=== PATIENT | female | born 1960 | race Caucasian/White ===

== ENCOUNTER 2018-10-16 13:30 | Emergency (ER) | payer OTHER ==
[~2018-10-16] VITALS: Ht 160 cm; Wt 113.4 kg
[2018-10-16 13:36] VITALS: BP 125/85
--- NOTE | 2018-10-16 13:40 | NUR ---
PT STATES SHE WAS TOLD BY HER PCP TO COME INTO [facility] FOR "FLUID RETENTION". PT STATES SHE HAS SHARP PAIN 9/10 TO BOTH LEGS WITH +1 PITTING EDEMA TO BLE. PT HAS REDDENED BLISTER LIKE BUMPS TO BACK OF BILAT LEGS AND R SIDE BUTTOCKS AREA. PER PT, HER DR TOLD HER "IT WAS A STAPH INFECTION". PT HAS BTK AMPUTATION TO LLE. AAOX4, PT UNABLE TO WALK. LUNGS CLEAR BL, PT DENIES SOB, CP. HR EVEN AND REGULAR; VSS; PATIENT POSITIONED FOR COMFORT; HOB ELEVATED; BEDRAILS UP X1; BED DOWN. ER MD MADE AWARE OF PT STATUS.
--- NOTE | 2018-10-16 14:00 | NUR ---
ERMD AT BEDSIDE
[2018-10-16] MEDS ORDERED: HYDROmorphone PFS 2 MG/ML SYR IVP ONE (14:10)
[2018-10-16 14:23] LABS: EOSINOPHILS # (AUTO) 0.1 K/uL (0-0.4); EOSINOPHILS % (AUTO) 4.1 % (0.0-4.0); HEMATOCRIT 36.7 % (36-48); HEMOGLOBIN 12.1 g/dL (12.0-16.0); LYMPHOCYTES # (AUTO) 0.7 K/uL (2.5-16.5); LYMPHOCYTES % (AUTO) 22.7 % (20.5-51.1); MEAN CORPUSCULAR HEMOGLOBIN 30 pg (27-31); MEAN CORPUSCULAR HGB CONC 33 g/dL (33-37); MEAN CORPUSCULAR VOLUME 90.1 fL (80-94); MONOCYTES # (AUTO) 0.3 K/uL (0.8-1.0); MONOCYTES % (AUTO) 9.5 % (1.7-9.3); NEUTROPHILS # (AUTO) 1.9 K/uL (1.8-7.7); NEUTROPHILS % (AUTO) 62.7 % (42.2-75.2); PLATELET COUNT (AUTO) 107 K/uL (140-450); RED BLOOD CELL COUNT(AUTO) 4.07 MIL/uL (4.20-5.40); RED CELL DISTRIBUTION WIDTH 17.4 % (11.6-13.7)
[2018-10-16 14:41] LABS: ANION GAP 7.3 (8-16); ASPARTATE AMINOTRANSFERASE 19 U/L (15-37); CARBON DIOXIDE 33.2 mmol/L (21-32); CHLORIDE 101 mmol/L (98-107); CREATININE 1.4 mg/dL (0.6-1.3); GFR ARICAN-AMERICAN 49 mL/min (>90); GLUCOSE 157 mg/dL (74-106); POTASSIUM 3.5 mmol/L (3.5-5.1); SODIUM SERUM 138 mmol/L (136-145); TOTAL BILIRUBIN 1.2 mg/dL (0.0-1.0); UREA NITROGEN, BLOOD 13 mg/dL (7-18)
[2018-10-16 14:51] LABS: ACETAMINOPHEN < 0.5 ug/ml (10-30); SALICYLATE < 2.8 mg/dL (2.8-20.0)
--- NOTE | 2018-10-16 15:30 | NUR ---
# 14 FR Song catheter with 10 ml utilizing sterile technique. Immediate return of 1000 ml DARK YELLOW, ORDOROUS urine noted. Bedside drainage bag placed below level of bladder. Urine sample collected and sent to lab. Pt tolerated procedure WELL.
[2018-10-16 15:49] LABS: APPEARANCE,URINE SL CLOUDY (CLEAR); BILIRUBIN,URINE NEGATIVE (NEGATIVE); BLOOD, URINE TRACE-L (NEGATIVE); COLOR,URINE YELLOW (YELLOW); LEUKOCYTE ESTERASE ,URINE 3+ (NEGATIVE); NITRITE, URINE POSITIVE (NEGATIVE); UGLUCOSE NEGATIVE (NEGATIVE)
[2018-10-16 15:54] LABS: BARBITURATE, URINE NEG. ng/ml (NEG <=200); BENZODIAZEPINE, URINE NEG. ng/mL (NEG <=200); CANNABINOID, URINE NEG. ng/mL (NEG <=50); COCAINE, URINE NEG. ng/mL (NEG <=300); OPIATE, URINE NEG. ng/mL (NEG <=2000); PHENCYCLIDINE SCREEN,URINE NEG. ng/mL (NEG <=25)
--- NOTE | 2018-10-16 16:14 | NUR ---
ERMD AT BEDSIDE
[2018-10-16 16:36] LABS: RBC,URINE 0-5 /HPF (0-5); WBC,URINE 20-60 /HPF (0-5)
[2018-10-16] MEDS ORDERED: cefTRIAXone 1,000 MG VIAL ONE (16:49)
[2018-10-16] MEDS ORDERED: oxyCODONE/APAP 5/325 MG 1 TAB TAB PO ONE (18:45)
[2018-10-16 19:00] VITALS: BP 122/70
--- NOTE | 2018-10-16 19:00 | NUR ---
Patient discharged with v/s stable. Written and verbal after care instructions given and explained. Patient alert, oriented and verbalized understanding of instructions. Ambulance Transport with to home. All questions addressed prior to discharge. ID band removed. Patient advised to follow up with PMD. Rx of LASIX, PERCOCET, KEFLEX given. Patient educated on indication of medication including possible reaction and side effects. Opportunity to ask questions provided and answered.
== END 2018-10-16 19:00 | disposition home or self-care (01) ==
LOC: MED 13:30
DX: L03.115 Cellulitis of right lower limb (principal); I50.9 Heart failure, unspecified; Z89.512 Acquired absence of left leg below knee; Z98.890 Other specified postprocedural states; I25.2 Old myocardial infarction
CPT/HCPCS: 36415; 71045; 80053; 80305; 81001; 81025; 82550; 83880; 84484; 85025; 87086; 87186; 93005; 96365; 96375; 99284; G0480; G0482; J0696; J1170; Q0092

== ENCOUNTER 2018-10-24 14:28 | Inpatient (IN) | payer OTHER ==
[~2018-10-24] VITALS: Ht 160 cm; Wt 151.0 kg
[2018-10-24 14:41] VITALS: BP 126/75
--- NOTE | 2018-10-24 15:00 | NUR ---
58 YO M WITH CHIEF C/O RETAINING FLUID. PT REPORTS DRAINING GOLDEN CATHETER AT 09:00 THIS MORNING AND UP TO NOW THERE IS ONLY 200ML OF CLEAR YELLOW URINE. DENIES ANY SOB AT THIS TIME. A/O X4. PT CONNECTED TO RAMEZ COLINDRES UP X1 FOR SAFETY.
--- NOTE | 2018-10-24 15:00 | NUR ---
URINE COLLECTED AND SENT TO LAB
[2018-10-24] MEDS ORDERED: BUME1TAB92 PO ×2 (15:21→15:28)
[2018-10-24 15:24] LABS: BASOPHILS % (AUTO) 0.1 % (0.0-2.0); EOSINOPHILS # (AUTO) 0.1 K/uL (0-0.4); EOSINOPHILS % (AUTO) 4.1 % (0.0-4.0); HEMATOCRIT 36.6 % (36-48); LYMPHOCYTES # (AUTO) 0.5 K/uL (2.5-16.5); MEAN CORPUSCULAR HEMOGLOBIN 30 pg (27-31); MEAN CORPUSCULAR HGB CONC 33 g/dL (33-37); MEAN CORPUSCULAR VOLUME 89.9 fL (80-94); MONOCYTES # (AUTO) 0.3 K/uL (0.8-1.0); MONOCYTES % (AUTO) 9.3 % (1.7-9.3); NEUTROPHILS # (AUTO) 2.3 K/uL (1.8-7.7); NEUTROPHILS % (AUTO) 71.5 % (42.2-75.2); PLATELET COUNT (AUTO) 105 K/uL (140-450); RED BLOOD CELL COUNT(AUTO) 4.07 MIL/uL (4.20-5.40); RED CELL DISTRIBUTION WIDTH 16.9 % (11.6-13.7); WHITE BLOOD COUNT (AUTO) 3.3 K/uL (4.8-10.8)
[2018-10-24] MEDS ORDERED: FURO-570 PO (15:28)
[2018-10-24] MEDS ORDERED: HYDR2TAB6 PO (15:28)
[2018-10-24] MEDS ORDERED: DOL10 PO (15:28)
[2018-10-24] MEDS ORDERED: SPIR50TA PO (15:28)
[2018-10-24] MEDS ORDERED: GABA300C PO (15:28)
[2018-10-24 15:42] LABS: APPEARANCE,URINE HAZY (CLEAR); BILIRUBIN,URINE NEGATIVE (NEGATIVE); BLOOD, URINE 3+ (NEGATIVE); COLOR,URINE YELLOW (YELLOW); LEUKOCYTE ESTERASE ,URINE 1+ (NEGATIVE); NITRITE, URINE POSITIVE (NEGATIVE); UGLUCOSE NEGATIVE (NEGATIVE)
[2018-10-24 15:55] LABS: COARSE GRANULAR CASTS,URINE 0-10 /LPF (None Seen)
[2018-10-24 15:55] LABS: ALBUMIN 2.8 g/dL (3.4-5.0); CARBON DIOXIDE 33.9 mmol/L (21-32); CREATININE 1.7 mg/dL (0.6-1.3); POTASSIUM 3.9 mmol/L (3.5-5.1); TOTAL BILIRUBIN 1.2 mg/dL (0.0-1.0)
--- NOTE | 2018-10-24 16:00 | NUR ---
PT REFUSED INSERTION OF NEW GOLDEN CATHETER
[2018-10-24] MEDS ORDERED: BUMETANIDE 1 MG/4 ML VIAL IV ONE (16:30)
--- NOTE | 2018-10-24 16:52 | NUR ---
SPOKE WITH ELECTRICAL SYSTEMS DESIGNER AND CALLED FOR BED ASSIGNMENT. WILL CALL BACK.
--- NOTE | 2018-10-24 17:35 | NUR ---
RECEIVED BEDSIDE REPORT FROM ER NURSE. PATIENT IS AWAKE, ALERT AND ORIENTEDX4. NO SIGNS OF DISTRESS ON RA. SKIN HAS WOUNDS ON BUTTOCKS, PHOTOS TAKEN. LT BKA. IV ON R HAND 20G SL. CLEAN, DRY AND INTACT. PATIENT IS CONTINENT. FALL RISK PROTOCOL IN PLACE D/T WEAKNESS AND OBESITY. VITALS ARE B/P 111/81 HR 75 TEMP 98.6 RR 18 98% RA. MRSA NARES DONE. BED IN LOW POSITION. CALL LIGHT WITHIN REACH. PATIENT ABLE TO MAKE NEEDS KNOWN.
--- NOTE | 2018-10-24 17:55 | NUR ---
Pt admitted to med surg Rm 106b, report given to Conchita Laureano. Transfer of care at this time.
[2018-10-24] MEDS ORDERED: HYDROcodone/APAP 5/325 MG 1 TAB TAB PO PRN ×3 (18:15→22:00)
[2018-10-24] MEDS ORDERED: HYDROcodone/APAP 10/325 MG 1 TAB TAB PO PRN (18:15)
--- NOTE | 2018-10-24 19:15 | NUR ---
GAVE BEDSIDE REPORT TO [employer] SALES ENGINEER NURSE. PATIENT ENDORSED IN STABLE CONDITION.
--- NOTE | 2018-10-24 19:30 | NUR ---
RECEIVED BEDSIDE REPORT FROM DAY SHIFT RN, PATIENT IN BED, ON RA, V/S STALE, ON FALL PRECAUTIONS, IV IN RIGHT INDEX FINGER 20 G SL, NOTED 3+ PITTING EDEMA IN LOWER RIGHT LEG, LEFT BKA, ADMISSION QUESTIONS ASKED, NOTED SKIN TEAR ON SERGEI AREA AND RIGHT HIP, PICTURE TAKEN, WILL PROVIDE WOUND CARE ACCORDING TO MD ORDER.
--- NOTE | 2018-10-24 20:00 | NUR ---
PATIENT HAS DENTURES, TABLET, AND 2 CELL PHONES, SHE DID NOT WANT TO KEEP IN SAFE. WANTS TO KEEP AT BEDSIDE.
--- NOTE | 2018-10-24 20:58 | NUR ---
PATIENT C/O PAIN GAVE NORCO
[2018-10-24 21:18] VITALS: BP 109/52
[2018-10-24] MEDS: DEXT 5% / NACL 0.45% 1,000 ML IV SCH (21:57)
[2018-10-24] MEDS ORDERED: ONDANSETRON 4 MG/2 ML VIAL IVP PRN (22:00)
[2018-10-24] MEDS ORDERED: ACETAMINOPHEN 325 MG TAB PO PRN (22:00)
--- NOTE | 2018-10-24 22:37 | NUR ---
ORDER FOR FLUIDS, PATIENT EDEMATOUS, CALL DR FLORES FOR ORDERS TOLD TO HOLD FLUIDS.
[2018-10-25] VITALS: BP 113/58
[2018-10-25] MEDS: HYDROmorphone 2 MG TAB PO PRN ×4 (00:20→18:58)
--- NOTE | 2018-10-25 00:20 | NUR ---
PATIENT C/O PAIN GAVE DILAUDID
--- NOTE | 2018-10-25 01:00 | NUR ---
WOUND CARE PROVIDED
--- NOTE | 2018-10-25 01:34 | NUR ---
EMPTIED 2000 ML FROM GOLDEN CATH, SUBHA COLORED URINE
--- NOTE | 2018-10-25 03:15 | NUR ---
PATIENT RESTING IN BED NO SIGNS OF DISTRESS WILL CONTINUE TO MONITOR
--- NOTE | 2018-10-25 05:23 | NUR ---
PATIENT RESTING IN BED WILL CONTINUE TO MONITOR
--- NOTE | 2018-10-25 05:54 | NUR ---
PATIENT C/O PAIN GAVE DILAUDID
--- NOTE | 2018-10-25 07:14 | NUR ---
ENDORSED PATIENT TO DAY SHIFT NURSE, PATIENT STABLE.
--- NOTE | 2018-10-25 07:16 | NUR ---
RECEIVED BEDSIDE REPORT FROM INSPECTOR LINE RN. PATIENT IN BED, ON RA, ON FALL PRECAUTIONS, IV IN RIGHT INDEX FINGER 20 G SL, NOTED 3+ PITTING EDEMA IN LOWER RIGHT LEG, LEFT BKA, SKIN TEAR ON SERGEI AREA AND RIGHT HIP WITH APPROPRIATE DRESSING APPLIED, PICTURE IN CHART, WILL PROVIDE WOUND CARE ACCORDING TO MD ORDER. PT IS STABLE CONDITION. WENDIE N LOW POSITION, CALL LIGHT WITHIN REACH. WILL ROUND FREQUENTLY ON PT.
[2018-10-25] MEDS: DEXT 5% / NACL 0.45% 1,000 ML IV SCH ×2 (07:40→17:30)
[2018-10-25 08:00] VITALS: BP 105/62
[2018-10-25] MEDS: SPIRONOLACTONE 50 MG TAB PO SCH (09:00)
[2018-10-25] MEDS ORDERED: BUMETANIDE 1 MG TAB PO SCH ×2 (09:00)
[2018-10-25] MEDS: GABAPENTIN 300 MG CAP PO SCH ×3 (09:09→17:30)
--- NOTE | 2018-10-25 09:13 | NUR ---
ADMINISTERED MORNING MEDS TO PT. PT TOLERATED THEM WELL. PT REFUSED ALDACTONE DUE TO THE DOSAGE BEING OFF. WILL TALK TO MD ABOUT ORDER. ALL OTHER NEEDS MET. NO PAIN OR DISTRESS AT THIS TIME. WILL CONTINUE TO ROUND FREQUENTLY ON PT. BED IN LOW POSITION, CALL LIGHT WITHIN REACH.
[2018-10-25 10:21] LABS: BASOPHILS % (AUTO) 0.9 % (0.0-2.0); EOSINOPHILS # (AUTO) 0.1 K/uL (0-0.4); EOSINOPHILS % (AUTO) 5.1 % (0.0-4.0); HEMATOCRIT 36.4 % (36-48); HEMOGLOBIN 12.2 g/dL (12.0-16.0); LYMPHOCYTES # (AUTO) 0.6 K/uL (2.5-16.5); LYMPHOCYTES % (AUTO) 20.8 % (20.5-51.1); MEAN CORPUSCULAR HEMOGLOBIN 30 pg (27-31); MEAN CORPUSCULAR HGB CONC 34 g/dL (33-37); MEAN CORPUSCULAR VOLUME 89.4 fL (80-94); MONOCYTES # (AUTO) 0.3 K/uL (0.8-1.0); MONOCYTES % (AUTO) 9.5 % (1.7-9.3); NEUTROPHILS # (AUTO) 1.8 K/uL (1.8-7.7); NEUTROPHILS % (AUTO) 63.7 % (42.2-75.2); PLATELET COUNT (AUTO) 99 K/uL (140-450); RED BLOOD CELL COUNT(AUTO) 4.07 MIL/uL (4.20-5.40); RED CELL DISTRIBUTION WIDTH 16.8 % (11.6-13.7); WHITE BLOOD COUNT (AUTO) 2.8 K/uL (4.8-10.8)
[2018-10-25 10:29] LABS: ANION GAP 7.6 (8-16); CARBON DIOXIDE 35.1 mmol/L (21-32); CREATININE 1.4 mg/dL (0.6-1.3); POTASSIUM 3.7 mmol/L (3.5-5.1)
[2018-10-25 10:32] LABS: MAGNESIUM 1.9 mg/dL (1.8-2.4); PHOSPHORUS 3.6 mg/dL (2.5-4.9)
--- NOTE | 2018-10-25 11:27 | NUR ---
PT RESTING IN BED. NO COMPLAINTS OF PAIN OR DISTRESS AT THIS TIME. WILL CONTINUE TO MONITOR PT CLOSELY. BED IN LOW POSITION, CALL LIGHT WITHIN REACH.
--- NOTE | 2018-10-25 13:33 | NUR ---
PT RESTING IN BED WATCHING TV. ALL NEEDS CURRENTLY MET. WILL ROUND FREQUENTLY. BED IN LOWEST POSITION, CALL LIGHT WITHIN REACH.
[2018-10-25] MEDS ORDERED: FUROSEMIDE 40 MG TAB PO SCH ×2 (14:34→21:00)
--- NOTE | 2018-10-25 15:47 | NUR ---
PT SLEEPING IN BED. NO SIGNS OF PAIN OR DISTRESS. WILL CONTINUE TO ROUND FREQUENTLY.
[2018-10-25 16:00] VITALS: BP 129/72
--- NOTE | 2018-10-25 17:52 | NUR ---
PT EATING DINNER IN BED. NO SIGNS OF DISTRESS AT THIS TIME. WILL CONTINUE TO MONITOR PT CLOSELY
--- NOTE | 2018-10-25 19:28 | NUR ---
ENDORSED PT TO CODING AUDITOR FOR CONTINUITY OF CARE. PT IN STABLE CONDITION AT THIS TIME.
--- NOTE | 2018-10-25 19:30 | NUR ---
RECEIVED BEDSIDE REPORT FROM DAY SHIFT RN, PATIENT IN BED, ON RA, V/S STABLE, ON FALL PRECAUTIONS, IV IN RIGHT INDEX FINGER 20 G SL, NOTED 3+ PITTING EDEMA IN LOWER RIGHT LEG, LEFT BKA, SKIN TEAR ON SERGEI AREA DRESSING INTACT, EXPLAINED PLAN OF CARE WILL CONTINUE TO MONITOR.
[2018-10-25] MEDS: METHADONE 10 MG TAB PO PRN (20:30)
--- NOTE | 2018-10-25 20:41 | NUR ---
PATIENT C/O PAIN GAVE METHADONE, V/S STABLE.
[2018-10-25] MEDS: FUROSEMIDE 100 MG/10 ML VIAL IV SCH (21:06)
--- NOTE | 2018-10-25 21:12 | NUR ---
GAVE KEVIN OKEEFE
--- NOTE | 2018-10-25 22:30 | NUR ---
PATIENT RESTING IN BED NO SIGNS OF PAIN WILL CONTINUE TO MONITOR
[2018-10-26] VITALS: BP 124/68
--- NOTE | 2018-10-26 | NUR ---
HELPED PATIENT REPOSITION FOR COMFORT, DRESSING INTACT. V/S STABLE WILL CONTINUE TO MONITOR
--- NOTE | 2018-10-26 02:00 | NUR ---
SLEEPING IN BED NO SIGNS OF DISTRESS, WILL CONTINUE TO MONITOR
--- NOTE | 2018-10-26 03:11 | NUR ---
EMPTIED 2000 ML FROM GOLDEN CATH
[2018-10-26] MEDS: FUROSEMIDE 100 MG/10 ML VIAL IV SCH ×2 (04:22→13:42)
[2018-10-26] MEDS: HYDROmorphone 2 MG TAB PO PRN ×3 (04:31→23:49)
--- NOTE | 2018-10-26 04:31 | NUR ---
PATIENT C/O PAIN GAVE DILAUDID
--- NOTE | 2018-10-26 06:05 | NUR ---
PATIENT RESTING IN BED NO SIGNS OF PAIN
--- NOTE | 2018-10-26 07:15 | NUR ---
RECEIVED BEDSIDE REPORT UPDATE FROM ORACLE ERP ARCHITECT RN. PATIENT IN BED, ON RA, ON FALL PRECAUTIONS, IV IN RIGHT INDEX FINGER 20 G SL, NOTED 3+ PITTING EDEMA IN LOWER RIGHT LEG, LEFT BKA, SKIN TEAR ON SERGEI AREA AND RIGHT HIP WITH APPROPRIATE DRESSING APPLIED, PICTURE IN CHART, WILL PROVIDE WOUND CARE ACCORDING TO MD ORDER. PT IS STABLE CONDITION. BED IN LOW POSITION, CALL LIGHT WITHIN REACH. WILL ROUND FREQUENTLY ON PT.
--- NOTE | 2018-10-26 07:35 | NUR ---
ENDORSED PATIENT TO DAY SHIFT NURSE, PATIENT STABLE.
[2018-10-26 08:00] VITALS: BP 128/63
[2018-10-26 08:05] LABS: BASOPHILS % (AUTO) 0.7 % (0.0-2.0); EOSINOPHILS # (AUTO) 0.2 K/uL (0-0.4); EOSINOPHILS % (AUTO) 4.8 % (0.0-4.0); HEMATOCRIT 35.9 % (36-48); LYMPHOCYTES # (AUTO) 0.7 K/uL (2.5-16.5); LYMPHOCYTES % (AUTO) 20.9 % (20.5-51.1); MEAN CORPUSCULAR HEMOGLOBIN 30 pg (27-31); MEAN CORPUSCULAR HGB CONC 33 g/dL (33-37); MEAN CORPUSCULAR VOLUME 90.9 fL (80-94); MONOCYTES # (AUTO) 0.2 K/uL (0.8-1.0); MONOCYTES % (AUTO) 6.7 % (1.7-9.3); NEUTROPHILS # (AUTO) 2.1 K/uL (1.8-7.7); NEUTROPHILS % (AUTO) 66.9 % (42.2-75.2); PLATELET COUNT (AUTO) 114 K/uL (140-450); RED BLOOD CELL COUNT(AUTO) 3.95 MIL/uL (4.20-5.40); RED CELL DISTRIBUTION WIDTH 16.7 % (11.6-13.7); WHITE BLOOD COUNT (AUTO) 3.2 K/uL (4.8-10.8)
[2018-10-26 08:26] LABS: ANION GAP 9.2 (8-16); CARBON DIOXIDE 35.8 mmol/L (21-32); CREATININE 1.3 mg/dL (0.6-1.3)
[2018-10-26 08:31] LABS: MAGNESIUM 2.1 mg/dL (1.8-2.4); PHOSPHORUS 3.6 mg/dL (2.5-4.9)
--- NOTE | 2018-10-26 09:25 | NUR ---
RECEIVED BEDSIDE REPORT FROM TECHNOLOGY ASSISTANT RN. PATIENT IN BED, ON RA, ON FALL PRECAUTIONS, IV IN RIGHT INDEX FINGER 20 G SL, NOTED 3+ PITTING EDEMA IN LOWER RIGHT LEG, LEFT BKA, SKIN TEAR ON SERGEI AREA AND RIGHT HIP WITH APPROPRIATE DRESSING APPLIED, PICTURE IN CHART, WILL PROVIDE WOUND CARE ACCORDING TO MD ORDER. PT IS STABLE CONDITION. WENDIE N LOW POSITION, CALL LIGHT WITHIN REACH. WILL ROUND FREQUENTLY ON PT.
[2018-10-26] MEDS: GABAPENTIN 300 MG CAP PO SCH ×3 (09:35→16:14)
[2018-10-26] MEDS: SPIRONOLACTONE 50 MG TAB PO SCH (09:35)
--- NOTE | 2018-10-26 13:30 | NUR ---
PATIENT HAS BEEN SCREENED AND CATEGORIZED HIGH NUTRITION RISK. PATIENT WILL BE SEEN WITHIN 1-2 DAYS OF ADMISSION. 10/25/17MELINA GONZALEZ MBA, RD
--- NOTE | 2018-10-26 15:24 | NUR ---
PT SLEEPING IN BED. NO SIGNS OF PAIN OR DISTRESS. WILL CONTINUE TO ROUND FREQUENTLY.
[2018-10-26 16:00] VITALS: BP 120/59
--- NOTE | 2018-10-26 17:30 | NUR ---
10/26/18 RD INITIAL ASSESSMENT COMPLETED PLEASE REFER TO NUTRITION ASSESSMENT UNDER CARE ACTIVITY FOR ESTIMATED NUTRITIONAL NEEDS. RD RECOMMENDATIONS: 1. RECOMMEND RENAL 60G CCHO DIET 2. F/U 3-5 DAYS, MODERATE RISK MELINA GONZALEZ MBA, RD
--- NOTE | 2018-10-26 19:18 | NUR ---
ENDORSED PT TO CARD ASSEMBLER FOR CONTINUITY OF CARE. PT IN STABLE CONDITION.
--- NOTE | 2018-10-26 19:20 | NUR ---
Received endorsement from AM shift RN; patient is A/Ox4, able to make needs known, bedrest. Patient is watching TV. Introduced self, updated board. No SOB or distress noted, on room air. IV site on right index finger, 20 gauge, saline locked. Song catheter in place, pitting edema +3 noted on lower extremities. Skin tear on perianal area, closed wound/scar on right hip. Bed in the lowest position, call light within reach. Initial assessment done. Will continue to monitor.
[2018-10-26] MEDS ORDERED: FUROSEMIDE 100 MG/10 ML VIAL IV SCH (21:00)
--- NOTE | 2018-10-26 21:10 | NUR ---
Due meds given, no distress noted. Patient is talking on the phone.
[2018-10-26] MEDS: CEFEPIME 1,000 MG in DEXTROSE 5% 50 ML IV SCH (21:57)
[2018-10-26] MEDS ORDERED: CEFEPIME 1,000 MG VIAL ONE (22:03)
--- NOTE | 2018-10-26 23:05 | NUR ---
IV site right index finger leaking. IVF stopped. Removed IV, tip intact. Charge nurse Yazan changed IV site to right forearm, 24 gauge. Flushed and patent. Resumed IVF. Will continue to monitor.
[2018-10-27] VITALS: BP 120/56
--- NOTE | 2018-10-27 00:05 | NUR ---
Vitals taken, patient is talking on the phone. No distress noted.
[2018-10-27] MEDS: METHADONE 10 MG TAB PO PRN (02:22)
[2018-10-27] MEDS: LORazepam 2 MG/ML VIAL IVP PRN ×2 (02:27→14:37)
--- NOTE | 2018-10-27 02:30 | NUR ---
Checks made; no SOB or distress noted.
--- NOTE | 2018-10-27 05:01 | NUR ---
Rounds done; patient asleep, visible chest rise and fall noted.
[2018-10-27 06:59] LABS: BASOPHILS % (AUTO) 0.7 % (0.0-2.0); EOSINOPHILS # (AUTO) 0.1 K/uL (0-0.4); EOSINOPHILS % (AUTO) 4.1 % (0.0-4.0); HEMATOCRIT 38.6 % (36-48); LYMPHOCYTES # (AUTO) 0.7 K/uL (2.5-16.5); LYMPHOCYTES % (AUTO) 21.4 % (20.5-51.1); MEAN CORPUSCULAR HEMOGLOBIN 31 pg (27-31); MEAN CORPUSCULAR HGB CONC 34 g/dL (33-37); MEAN CORPUSCULAR VOLUME 90.7 fL (80-94); MONOCYTES # (AUTO) 0.2 K/uL (0.8-1.0); MONOCYTES % (AUTO) 7.7 % (1.7-9.3); NEUTROPHILS % (AUTO) 66.1 % (42.2-75.2); PLATELET COUNT (AUTO) 101 K/uL (140-450); RED BLOOD CELL COUNT(AUTO) 4.26 MIL/uL (4.20-5.40); RED CELL DISTRIBUTION WIDTH 16.8 % (11.6-13.7); WHITE BLOOD COUNT (AUTO) 3.1 K/uL (4.8-10.8)
--- NOTE | 2018-10-27 07:10 | NUR ---
Endorsed patient to AM shift RN for continuity of care; patient in stable condition.
--- NOTE | 2018-10-27 07:11 | NUR ---
ENDORSED PT TO PM NURSE AT BEDSIDE. PT LYING ON HER BED. HAS IV ACCESS ON THE RT FA. HAS LOWER PITTING EDEMA 3+ ON HER LOWER EXTREMITY. PT IS BEDREST, HAS LFT BKA. PT AOX4, ABLE TO MAKE HER NEEDS KNOWN. NO SIGN OF DISTRESS NOTED. CALL LIGHT WITHIN PT REACH. ALL SAFETY MEASURE IN PLACE. WILL CONTINUE TO MONITOR PT.
[2018-10-27 07:12] LABS: PHOSPHORUS 3.4 mg/dL (2.5-4.9)
[2018-10-27 07:15] LABS: C-REACTIVE PROTEIN QUANT 1.2 mg/dL (0.0-0.9)
[2018-10-27 07:18] LABS: ALBUMIN 3.1 g/dL (3.4-5.0); ANION GAP 10.4 (8-16); CARBON DIOXIDE 35.2 mmol/L (21-32); CREATININE 1.2 mg/dL (0.6-1.3); POTASSIUM 3.6 mmol/L (3.5-5.1); TOTAL BILIRUBIN 1.4 mg/dL (0.0-1.0)
[2018-10-27 08:00] VITALS: BP 137/78
[2018-10-27] MEDS: FUROSEMIDE 100 MG/10 ML VIAL IV SCH ×2 (08:46→14:37)
[2018-10-27] MEDS: GABAPENTIN 300 MG CAP PO SCH ×3 (08:46→17:19)
[2018-10-27] MEDS: SPIRONOLACTONE 50 MG TAB PO SCH (08:47)
[2018-10-27] MEDS: HYDROmorphone 2 MG TAB PO PRN (08:47)
--- NOTE | 2018-10-27 08:53 | NUR ---
ADMINISTERED MEDS TO PT ORDERED. TOLERATED WELL. IV SITE APPEARS NORMAL, SLIGHTLY PUFFY, NOT TENDER , DENIES ANY PAIN. PT STATES CAN FEEL THE MEDS GOING IN. WILL MONITOR THE IV SITE. WILL CONTINUE TO MONITOR PT.
[2018-10-27] MEDS: CEFEPIME 1,000 MG in DEXTROSE 5% 50 ML IV SCH ×2 (09:21→20:33)
--- NOTE | 2018-10-27 11:30 | NUR ---
WOUND CARE EVALUATION NOTE: SKIN ASSESSMENT ON PT, NO OPEN ACTIVE WOUNDS. PT. IS AAX4, ABLE TO TURN AND REPOSITION WITHOUT ASSISTANCE. F/C PATENT WITH DARK YELLOW URINE OBSERVED IN BSD BAG. PLAN OF CARE DISCUSS WITH PT, AND PT. VERBALIZES UNDERSTANDING. 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 PLEASE CONTACT WOUND CARE NURSE FOR ANY QUESTION AND CHANGE OF WOUND CONDITION. Addendum: 10/27/18 at 1303 by Dayne Chamberlain (Grace) RN MULTIPLE ECCHYMOSIS TO UPPER ARMS FROM IV INSERTION AND BLOOD DRAW. SKIN INTACT.
[2018-10-27] MEDS ORDERED: CHLOROTHIAZIDE SODIUM 500 MG VIAL IV ONE (12:50)
[2018-10-27] MEDS: Z-GUARD PASTE TP SCH (13:00)
--- NOTE | 2018-10-27 14:30 | NUR ---
ADMINISTERED MEDS TO PT ORDERED. PT COMPLAIN OF FEELING ANXIOUS. ATIVAN ADMINISTERED ORDERED. TOLERATED WELL. CALL LIGHT WITHIN PTS REACH. WILL CONTINUE TO MONITOR PT.
[2018-10-27] MEDS: HYDRAGUARD CREAM TP SCH (14:38)
[2018-10-27] MEDS ORDERED: METOLAZONE 5 MG TAB PO SCH (15:30)
[2018-10-27 16:00] VITALS: BP 115/63
--- NOTE | 2018-10-27 16:15 | NUR ---
CHECKED ON THE PT. SLEEPING ON HER BED. VS NORMAL. NO SIGN OF DISTRESS NOTED. ALL SAFETY MEASURE IN PLACE. WILL CONTINUE TO MONITOR PT.
--- NOTE | 2018-10-27 19:10 | NUR ---
ENDORSED PT TO PM NURSE AT BEDSIDE. PT SLEEPING AT THIS TIME.
--- NOTE | 2018-10-27 19:11 | NUR ---
RECEIVED REPORT FROM DAY SHIFT NURSE BIPIN-RN AT BEDSIDE. PT ASLEEP AND DROWSY AT THIS TIME. ACCORDING TO DAY SHIFT NURSE PT IS AOX4, ON ROOM AIR WITH LEFT UPPER ARM #22G-SL. RIGHT LEG EDEMA +2; LEFT LEG BKA, RIGHT HIP/SERGEI AREA- INCONTINENT DERMATITIS; BUMPS ON BUTTOCKS. GOLDEN CATHETER IN PLACE WITH STRICT I&O IN PLACE. BED IN LOWEST POSITION, BED BREAKS ON, BOTH SIDE RAILS UP AND FALL PRECAUTIONS IN PLACE. BEDSIDE TABLE AND CALL LIGHT ARE WITHIN REACH. WILL CONTINUE TO MONITOR.
[2018-10-27 20:00] VITALS: BP 107/62
--- NOTE | 2018-10-27 20:00 | NUR ---
VITAL SIGNS TAKEN AND TOLERATED WELL. NO S/S OF RESPIRATORY DISTRESS OR DISCOMFORT NOTED AT THIS TIME. WILL CONTINUE TO MONITOR.
--- NOTE | 2018-10-27 20:33 | NUR ---
SCHEDULED MEDICATION MAXIPIME GIVEN AND TOLERATED WELL. NO S/S OF RESPIRATORY DISTRESS OR DISCOMFORT NOTED AT THIS TIME. WILL CONTINUE TO MONITOR.
--- NOTE | 2018-10-27 22:00 | NUR ---
PT CONTINUES TO SLEEP IN BED. NO S/S OF RESPIRATORY DISTRESS OR DISCOMFORT NOTED AT THIS TIME. WILL CONTINUE TO MONITOR.
[2018-10-28] VITALS: BP 138/79
--- NOTE | 2018-10-28 | NUR ---
VITAL SIGNS TAKEN AND TOLERATED WELL. NO S/S OF RESPIRATORY DISTRESS OR DISCOMFORT NOTED AT THIS TIME. WILL CONTINUE TO MONITOR.
[2018-10-28] MEDS: HYDRAGUARD CREAM TP SCH ×2 (01:15→13:50)
[2018-10-28] MEDS: Z-GUARD PASTE TP SCH ×2 (01:15→13:50)
[2018-10-28] MEDS: HYDROmorphone 2 MG TAB PO PRN ×3 (01:40→20:11)
--- NOTE | 2018-10-28 01:40 | NUR ---
PT C/O PAIN 02/07- MEDICATED WITH DILAUDID AND TOLERATED WELL. PT C/O FEELING ANXIOUS- WILL MEDICATE. NO S/S OF RESPIRATORY DISTRESS OR DISCOMFORT NOTED AT THIS TIME. WILL CONTINUE TO MONITOR.
[2018-10-28] MEDS: LORazepam 2 MG/ML VIAL IVP PRN ×2 (01:47→14:05)
--- NOTE | 2018-10-28 01:47 | NUR ---
ATIVAN GIVEN FOR ANXIETY. PT TOLERATED WELL. NO S/S OF RESPIRATORY DISTRESS OR DISCOMFORT NOTED AT THIS TIME. WILL CONTINUE TO MONITOR.
--- NOTE | 2018-10-28 03:29 | NUR ---
ENDORSED PT CARE TO RESPOOLER NURSE NAVEED FOR CONTINUITY OF CARE.
--- NOTE | 2018-10-28 03:30 | NUR ---
RECEIVED REPORT FROM JONNA CARLOS, WILL CONTINUE WITH CARE. PATIENT RESTING, AND IN STABLE CONDITION.
--- NOTE | 2018-10-28 05:30 | NUR ---
PATIENT SLEEPING IN BED. NO SIGNS OF DISTRESS. SAFETY PRECAUTIONS IN PLACE.
--- NOTE | 2018-10-28 07:25 | NUR ---
REPORT RECIEVED FROM NURSE SKIP, PT ASLEEP, EASILY AROUSABLE BY VERBAL STIMULI TO A/O APPROPRIATE AND ABLE TO COMMUNICATE NEEDS. DENIES PAIN, DENIES SOB, CONTINUES TO HAVE EDEMA. CALL LIGHT, PERSONAL ITEMS WITHIN REACH, SAFETY MEASURES IN PLACE, NO S/S OF ACUTE DISTRESS AT THIS TIME, WILL CONTINUE TO MONITOR
--- NOTE | 2018-10-28 07:25 | NUR ---
GAVE BEDSIDE REPORT TO DAY SHIFT RN, ENDORSING FOR CONTINUITY OF CARE. PATIENT STABLE AND ALERT. SAFETY PRECAUTIONS IN PLACE.
[2018-10-28 08:00] VITALS: BP 136/89
[2018-10-28] MEDS: FUROSEMIDE 100 MG/10 ML VIAL IV SCH ×2 (08:23→14:08)
[2018-10-28] MEDS: GABAPENTIN 300 MG CAP PO SCH ×3 (08:24→17:14)
[2018-10-28] MEDS: CEFEPIME 1,000 MG in DEXTROSE 5% 50 ML IV SCH ×2 (08:24→20:10)
[2018-10-28] MEDS: METOLAZONE 5 MG TAB PO SCH (08:24)
[2018-10-28] MEDS: SPIRONOLACTONE 50 MG TAB PO SCH (08:24)
[2018-10-28 08:58] LABS: BASOPHILS % (AUTO) 0.7 % (0.0-2.0); EOSINOPHILS # (AUTO) 0.1 K/uL (0-0.4); EOSINOPHILS % (AUTO) 4.2 % (0.0-4.0); HEMOGLOBIN 12.2 g/dL (12.0-16.0); LYMPHOCYTES # (AUTO) 0.6 K/uL (2.5-16.5); LYMPHOCYTES % (AUTO) 21.3 % (20.5-51.1); MEAN CORPUSCULAR HEMOGLOBIN 31 pg (27-31); MEAN CORPUSCULAR HGB CONC 34 g/dL (33-37); MEAN CORPUSCULAR VOLUME 89.8 fL (80-94); MONOCYTES # (AUTO) 0.3 K/uL (0.8-1.0); MONOCYTES % (AUTO) 10.3 % (1.7-9.3); NEUTROPHILS # (AUTO) 1.8 K/uL (1.8-7.7); NEUTROPHILS % (AUTO) 63.5 % (42.2-75.2); PLATELET COUNT (AUTO) 95 K/uL (140-450); RED BLOOD CELL COUNT(AUTO) 4.01 MIL/uL (4.20-5.40); RED CELL DISTRIBUTION WIDTH 16.3 % (11.6-13.7); WHITE BLOOD COUNT (AUTO) 2.9 K/uL (4.8-10.8)
[2018-10-28 09:00] LABS: ANION GAP 6.8 (8-16); CARBON DIOXIDE 34.8 mmol/L (21-32); CREATININE 1.1 mg/dL (0.6-1.3); POTASSIUM 3.6 mmol/L (3.5-5.1)
[2018-10-28 09:01] LABS: MAGNESIUM 2.3 mg/dL (1.8-2.4); PHOSPHORUS 3.6 mg/dL (2.5-4.9)
--- NOTE | 2018-10-28 09:30 | NUR ---
PT REMAINS A/O APPROPRIATE AND ABLE TO COMMUNICATE NEEDS. PT DENIES SOB, NO S/S OF ACUTE DISTRESS AT THIS TIME CALL LIGHT,AND PERSONAL ITEMS WITHIN REACH, SAFETY MEASURES IN PLACE, WILL CONTINUE TO MONITOR.
--- NOTE | 2018-10-28 11:30 | NUR ---
PT SLEEPING AT THIS TIME, EASILY AROUSABLE BY VERBAL STIMULI TO A/O APPROPRIATE AND ABLE TO COMMUNICATE NEEDS. PT DENIES SOB, NO S/S OF ACUTE DISTRESS AT THIS TIME, ASSISTED TO REPOSITION AND WITH SKIN CARE, PT YARELIS WELL. CALL LIGHT,AND PERSONAL ITEMS WITHIN REACH, SAFETY MEASURES IN PLACE, WILL CONTINUE TO MONITOR.
--- NOTE | 2018-10-28 14:00 | NUR ---
A/O APPROPRIATE AND ABLE TO COMMUNICATE NEEDS. PERIPHERAL IV TO RUE AND LUE NO LONGER PATENT, LEAKING WITH FLUSH, NO BLOOD RETURN, PT DENIES PAIN AT SIDE NO REDNESS OR SWELLING NOTED, PERIPHERAL IV CATHETERS REMOVED, CATHETERS INTACT, PT YARELIS REMOVAL WELL, NEW PERIPHERAL IV INSERTED TO L THUMB 2G, POSITIVE FLASH AND FLUSH, PT TOLERATED INSERTION WELL. CALL LIGHT,AND PERSONAL ITEMS WITHIN REACH, SAFETY MEASURES IN PLACE, NO S/S OF ACUTE DISTRESS AT THIS TIME, WILL CONTINUE TO MONITOR
--- NOTE | 2018-10-28 14:05 | NUR ---
C/O ANXIETY, DECREASED STIMULI, ENCOURAGED RELAXATION TECHNIQUES, AT GA REQUEST PROVIDED PRN MEDICATION. PT REMAINS A/O APPROPRIATE AND ABLE TO COMMUNICATE NEEDS, CALL LIGHT, PERSONAL ITEMS WITHIN REACH, SAFETY MEASURES IN PLACE, NO S/S OF ACUTE DISTRESS AT THIS TIME, WILL CONTINUE TO MONITOR
--- NOTE | 2018-10-28 14:30 | NUR ---
PAGED Juvenal BACK TO FOLLOW UP WHAT TIME HE IS COMING TO DISCHARGE PT TODAY.
[2018-10-28 16:00] VITALS: BP 103/50
--- NOTE | 2018-10-28 16:00 | NUR ---
PT SLEEPING AT THIS TIME, EASILY AROUSABLE TO VERBAL STIMULI, REMAINS A/O APPROPRIATE AND ABLE TO COMMUNICATE NEEDS. PT DENIES SOB, NO S/S OF ACUTE DISTRESS AT THIS TIME CALL LIGHT,AND PERSONAL ITEMS WITHIN REACH, SAFETY MEASURES IN PLACE, WILL CONTINUE TO MONITOR.
--- NOTE | 2018-10-28 16:11 | NUR ---
Zahra BACK CALLED BACK STATED HE WILL COME TO SEE PT AT 5 PM TODAY.
--- NOTE | 2018-10-28 19:20 | NUR ---
REPORT ENDORSED TO ONCOMING NURSE JONNA. PT REMAINS A/O APPROPRIATE AND ABLE TO COMMUNICATE NEEDS. CALL LIGHT, PERSONAL ITEMS WITHIN REACH, SAFETY MEASURES IN PLACE, NO S/S OF ACUTE DISTRESS AT THIS TIME.
--- NOTE | 2018-10-28 19:21 | NUR ---
RECEIVED REPORT FROM DAY SHIFT NURSE BIBIANA-RN AT BEDSIDE. PT RESTING IN BED, AOX4, ON ROOM AIR WITH LEFT THUMB #24G-SL. RIGHT LEG EDEMA +2; LEFT LEG BKA, RIGHT HIP/SERGEI AREA- INCONTINENT DERMATITIS; BUMPS ON BUTTOCKS. GOLDEN CATHETER IN PLACE WITH STRICT I&O IN PLACE. DISCUSSED PLAN OF CARE AND PT VERBALIZED UNDERSTANDING. BED IN LOWEST POSITION, BED BREAKS ON, BOTH SIDE RAILS UP AND FALL PRECAUTIONS IN PLACE. BEDSIDE TABLE AND CALL LIGHT ARE WITHIN REACH. WILL CONTINUE TO MONITOR.
[2018-10-28 20:00] VITALS: BP 119/69
--- NOTE | 2018-10-28 20:00 | NUR ---
VITAL SIGNS TAKEN AND TOLERATED WELL. PT C/O PAIN 03/10- WILL MEDICATE. NO S/S OF RESPIRATORY DISTRESS OR DISCOMFORT NOTED AT THIS TIME. WILL CONTINUE TO MONITOR.
--- NOTE | 2018-10-28 20:11 | NUR ---
SCHEDULED MEDICATION MAXIPRIME GIVEN AND TOLERATED WELL. DILAUDID GIVEN FOR PAIN AND TOLERATED WELL. NO S/S OF RESPIRATORY DISTRESS OR DISCOMFORT NOTED AT THIS TIME. WILL CONTINUE TO MONITOR.
--- NOTE | 2018-10-28 22:00 | NUR ---
PT SLEEPING IN BED. NO S/S OF RESPIRATORY DISTRESS OR DISCOMFORT NOTED AT THIS TIME. WILL CONTINUE TO MONITOR.
[2018-10-29] VITALS: BP 104/56
--- NOTE | 2018-10-29 | NUR ---
VITALS TAKEN. TOLERATED WELL. NO COMPLAINTS AT THIS TIME. BED IN LOWEST POSITION. CALL LIGHT WITHIN REACH. WILL CONTINUE TO MONITOR.
[2018-10-29] MEDS: HYDRAGUARD CREAM TP SCH ×2 (01:30→12:36)
[2018-10-29] MEDS: Z-GUARD PASTE TP SCH ×2 (01:30→12:36)
--- NOTE | 2018-10-29 02:00 | NUR ---
PT RESTING IN BED. NO S/S OF RESPIRATORY DISTRESS OR DISCOMFORT NOTED AT THIS TIME. WILL CONTINUE TO MONITOR.
[2018-10-29] MEDS: HYDROmorphone 2 MG TAB PO PRN ×2 (03:25→12:34)
--- NOTE | 2018-10-29 03:34 | NUR ---
ADMINISTERED MEDS. EDUCATED ON SIDE EFFECTS. VERBALIZED UNDERSTANDING. PT TOLERATED WELL. NO SIGNS OF RESP DISTRESS. BED IN LOW POSITION. CALL LIGHT WITHIN REACH. WILL CONTINUE TO MONITOR.
--- NOTE | 2018-10-29 05:09 | NUR ---
PT SLEEPING COMFORTABLY IN BED. EASILY AROUSABLE. NO SIGNS OF RESP DISTRESS. BED IN LOW POSITION. CALL LIGHT WITHIN REACH. WILL CONTINUE TO MONITOR.
--- NOTE | 2018-10-29 07:10 | NUR ---
ENDORSED PT TO DAYSHIFT RN. PT IN STABLE CONDITION. BED IN LOWEST POSITION. CALL LIGHT WITHIN REACH.
--- NOTE | 2018-10-29 07:11 | NUR ---
RECEIVED REPORT FROM SPLITTER OPERATOR NURSE. PATIENT IS AWAKE AND ALERT. RESPIRATIONS ARE EVEN AND UNLABORED ON ROOM AIR. IV IS INTACT, PATENT, AND INFUSING IVF. BKA NOTED. PLAN OF CARE WAS REVIEWED WITH PATIENT. PATIENT VERBALIZED UNDERSTANDING. SAFETY MEASURES IN PLACE, BED IS IN THE LOWEST POSITION WITH CALL LIGHT WITHIN REACH, SIDERAILS X2. WILL CONTINUE TO MONITOR.
[2018-10-29 08:00] VITALS: BP 114/60
[2018-10-29 08:13] LABS: EOSINOPHILS # (AUTO) 0.1 K/uL (0-0.4); EOSINOPHILS % (AUTO) 4.3 % (0.0-4.0); HEMATOCRIT 35.3 % (36-48); HEMOGLOBIN 11.9 g/dL (12.0-16.0); LYMPHOCYTES # (AUTO) 0.7 K/uL (2.5-16.5); LYMPHOCYTES % (AUTO) 21.3 % (20.5-51.1); MEAN CORPUSCULAR HEMOGLOBIN 30 pg (27-31); MEAN CORPUSCULAR HGB CONC 34 g/dL (33-37); MEAN CORPUSCULAR VOLUME 89.5 fL (80-94); MONOCYTES # (AUTO) 0.4 K/uL (0.8-1.0); NEUTROPHILS % (AUTO) 62.4 % (42.2-75.2); PLATELET COUNT (AUTO) 101 K/uL (140-450); RED BLOOD CELL COUNT(AUTO) 3.95 MIL/uL (4.20-5.40); RED CELL DISTRIBUTION WIDTH 16.6 % (11.6-13.7); WHITE BLOOD COUNT (AUTO) 3.3 K/uL (4.8-10.8)
[2018-10-29 08:46] LABS: ANION GAP 8.4 (8-16); CARBON DIOXIDE 34.2 mmol/L (21-32); CREATININE 1.3 mg/dL (0.6-1.3); MAGNESIUM 2.3 mg/dL (1.8-2.4); PHOSPHORUS 3.8 mg/dL (2.5-4.9); POTASSIUM 3.6 mmol/L (3.5-5.1)
[2018-10-29] MEDS: FUROSEMIDE 100 MG/10 ML VIAL IV SCH ×2 (09:01→12:35)
[2018-10-29] MEDS: METOLAZONE 5 MG TAB PO SCH (09:01)
[2018-10-29] MEDS: GABAPENTIN 300 MG CAP PO SCH ×2 (09:01→12:34)
[2018-10-29] MEDS: SPIRONOLACTONE 50 MG TAB PO SCH (09:02)
[2018-10-29] MEDS: CEFEPIME 1,000 MG in DEXTROSE 5% 50 ML IV SCH (09:02)
--- NOTE | 2018-10-29 09:10 | NUR ---
GAVE SCHEDULED MEDICATIONS. PATIENT DENIES PAIN AT THIS TIME. WILL CONTINUE TO MONITOR.
[2018-10-29] MEDS ORDERED: FURO-570 PO (12:07)
[2018-10-29] MEDS ORDERED: CIPR500T4 PO (12:07)
[2018-10-29] MEDS ORDERED: METO5TAB9 PO (12:07)
--- NOTE | 2018-10-29 12:36 | NUR ---
PATIENT SITTING DOWN IN BED TALKING ON THE PHONE. COMPLAINTS OF PAIN. DILAUDID PO GIVEN AT THIS TIME. OTHER SCHEDULED MEDICATIONS DUE GIVEN. WILL CONTINUE TO MONITOR.
[2018-10-29] MEDS: LORazepam 2 MG/ML VIAL IVP PRN (13:51)
--- NOTE | 2018-10-29 13:56 | NUR ---
DISCHARGE INSTRUCTION GIVEN, PATIENT PREFFERED THEM IN POLISH. INSTRUCTED TO FOLLOW UP WITH PCP IN 1-2 WEEKS. WENT OVER NEW PRESCRIPTIONS WITH PATIENT. PATIENT VERBALIZED UNDERSTANDING, NO QUESTIONS AT THIS TIME.
--- NOTE | 2018-10-29 15:25 | NUR ---
Faxed transportation request form to [facility] .
--- NOTE | 2018-10-29 15:30 | NUR ---
Spoke with Ebonie from [facility] . [facility] already arranged transportation for the patient and the patient will be picked up by [facility] at 1530. Informed Kelly CN for the ETA of [facility].
[2018-10-29 16:00] VITALS: BP 103/64
--- NOTE | 2018-10-29 16:40 | NUR ---
PATIENT PICKED UP BY [facility]. PATIENT IS STABLE. IV WAS REMOVED WITH MINIMAL BLOOD AND LUMEN COMPLETELY INTACT. ID BANDS REMOVED. PATIENT DISCHARGED AT THIS TIME TO HOME.
== END 2018-10-29 16:40 | disposition home or self-care (01) | DRG 682 ==
LOC: MED 14:28 → MTU 16:44
PROVIDERS: ADMIT Internal Medicine Cardiovascular Disease; ATTEND Internal Medicine Cardiovascular Disease
DX: N17.0 Acute kidney failure with tubular necrosis (principal); E43 Unspecified severe protein-calorie malnutrition; N39.0 Urinary tract infection, site not specified; E87.1 Hypo-osmolality and hyponatremia; I13.0 Hypertensive heart and chronic kidney disease with heart failure and stage 1 through stage 4 chronic kidney disease, or unspecified chronic kidney disease; Z68.43 Body mass index [BMI] 50.0-59.9, adult; N18.3 Chronic kidney disease, stage 3 (moderate); B19.20 Unspecified viral hepatitis C without hepatic coma; E11.40 Type 2 diabetes mellitus with diabetic neuropathy, unspecified; B96.5 Pseudomonas (aeruginosa) (mallei) (pseudomallei) as the cause of diseases classified elsewhere; D69.6 Thrombocytopenia, unspecified; D72.819 Decreased white blood cell count, unspecified; E11.22 Type 2 diabetes mellitus with diabetic chronic kidney disease; E11.65 Type 2 diabetes mellitus with hyperglycemia; E66.9 Obesity, unspecified; E88.09 Other disorders of plasma-protein metabolism, not elsewhere classified; G89.29 Other chronic pain; I50.9 Heart failure, unspecified; K74.60 Unspecified cirrhosis of liver; E87.8 Other disorders of electrolyte and fluid balance, not elsewhere classified; R33.9 Retention of urine, unspecified; Z88.5 Allergy status to narcotic agent; Z89.512 Acquired absence of left leg below knee; Z90.49 Acquired absence of other specified parts of digestive tract; Z90.710 Acquired absence of both cervix and uterus; Z79.899 Other long term (current) drug therapy
CPT/HCPCS: 36415; 71045; 76770; 80048; 80053; 81001; 82948; 83735; 83880; 84100; 84484; 85025; 85651; 86140; 87081; 87086; 87186; 93970; 96374; 99285; J0692; J1940; J2060; J3490; J7030; J7060; Q0092